=== PATIENT | male | born 1930 | race Caucasian/White ===

== ENCOUNTER 2022-02-09 13:05 | Inpatient (IN) | payer MEDICARE, OTHER ==
[2022-02-09 14:18] LABS: CHLORIDE,CL 101 mmol/L (98-107); SODIUM,NA 137 mmol/L (136-145)
[2022-02-09 14:20] LABS: ANION GAP 16.5 mmol/L (5-15); ESTIMATED GFR 36 mL/min (>=60)
[2022-02-09] MEDS ORDERED: Labetalol 20 MG/4 ML Syringe IVPUSH ONE ×2 (15:27→18:33)
[2022-02-09] MEDS ORDERED: Metoprolol Tartrate 25 MG Tab PO ONE (18:50)
[2022-02-09] MEDS ORDERED: Ondansetron 4 MG/2 ML SDV IV PRN (20:50)
[2022-02-09] MEDS ORDERED: Acetaminophen 650 MG Supp RECTAL PRN (20:50)
[2022-02-09] MEDS ORDERED: Acetaminophen 325 MG Tab PO PRN (20:50)
[2022-02-09] MEDS ORDERED: Labetalol 20 MG/4 ML Syringe IVPUSH PRN (20:55)
[2022-02-09] MEDS ORDERED: Glucagon,Human Recombinant 1 MG Vial IM PRN (21:06)
[2022-02-09] MEDS ORDERED: 50% Dextrose in Water 50 ML Syringe IVPUSH PRN (21:06)
[2022-02-09] MEDS ORDERED: LORazepam Conc Solution 2 MG/ML 30 ML Bottle PO PRN (21:09)
[2022-02-09] MEDS ORDERED: Morphine Oral Concentrate 20 MG/ML 30 ML Bottle SL PRN (21:13)
[2022-02-10] MEDS ORDERED: Insulin Regular, Human 100 Units/ML 3 ML Vial SUBCUT SCH ×2 (07:00→17:00)
[2022-02-10 07:42] LABS: CHLORIDE,CL 101 mmol/L (98-107); SODIUM,NA 135 mmol/L (136-145)
[2022-02-10 07:50] LABS: ANION GAP 13.4 mmol/L (5-15); ESTIMATED GFR 36 mL/min (>=60)
[2022-02-10] MEDS: Insulin Regular, Human 100 Units/ML 3 ML Vial SUBCUT SCH ×4 (09:05→18:02)
[2022-02-10] MEDS: Levothyroxine 100 MCG Tab PO SCH (09:05)
[2022-02-10] MEDS: Metoprolol Succinate 50 MG Tab.ER PO SCH (09:05)
[2022-02-10] MEDS ORDERED: 50% Dextrose in Water 50 ML Syringe IVPUSH PRN (09:07)
[2022-02-10] MEDS ORDERED: Glucagon,Human Recombinant 1 MG Vial IM PRN (09:07)
[2022-02-10] MEDS: amLODIPine 5 MG Tab PO SCH (09:15)
[2022-02-10] MEDS: Aspirin 81 MG Tab.EC PO SCH (10:32)
[2022-02-10] MEDS: Insulin Glarg,Human.Rec.Analog 100 Unit/ML SUBCUT SCH (10:33)
[2022-02-11] MEDS: Levothyroxine 100 MCG Tab PO SCH (05:59)
[2022-02-11 07:33] LABS: ANION GAP 10.1 mmol/L (5-15)
[2022-02-11] MEDS ORDERED: Insulin Regular, Human 100 Units/ML 3 ML Vial SUBCUT SCH (08:00)
[2022-02-11] MEDS: Insulin Glarg,Human.Rec.Analog 100 Unit/ML SUBCUT SCH (08:25)
[2022-02-11] MEDS: Insulin Regular, Human 100 Units/ML 3 ML Vial SUBCUT SCH ×3 (08:29→12:06)
[2022-02-11] MEDS: amLODIPine 5 MG Tab PO SCH (08:33)
[2022-02-11] MEDS: Aspirin 81 MG Tab.EC PO SCH (08:33)
[2022-02-11] MEDS: Metoprolol Succinate 50 MG Tab.ER PO SCH (08:34)
[2022-02-11] MEDS ORDERED: Sulfamethoxazole/Trimethoprim 400-80 MG Tab PO SCH (09:00)
== END 2022-02-11 17:45 | disposition hospice, home (50) | DRG 65 ==
LOC: VM.ED 13:05 → VM.MS 18:48
PROVIDERS: ADMIT Nurse Practitioner Family; ATTEND Nurse Practitioner Family
DX: I63.9 Cerebral infarction, unspecified (principal); N39.0 Urinary tract infection, site not specified; N40.0 Benign prostatic hyperplasia without lower urinary tract symptoms; E03.9 Hypothyroidism, unspecified; R63.4 Abnormal weight loss; Z66 Do not resuscitate; Z51.5 Encounter for palliative care; H91.90 Unspecified hearing loss, unspecified ear; I25.10 Atherosclerotic heart disease of native coronary artery without angina pectoris; E78.00 Pure hypercholesterolemia, unspecified; I73.9 Peripheral vascular disease, unspecified; I65.23 Occlusion and stenosis of bilateral carotid arteries; K57.90 Diverticulosis of intestine, part unspecified, without perforation or abscess without bleeding; N18.32 Chronic kidney disease, stage 3b; R32 Unspecified urinary incontinence; R56.9 Unspecified convulsions; I12.9 Hypertensive chronic kidney disease with stage 1 through stage 4 chronic kidney disease, or unspecified chronic kidney disease; E11.22 Type 2 diabetes mellitus with diabetic chronic kidney disease; F03.90 Unspecified dementia, unspecified severity, without behavioral disturbance, psychotic disturbance, mood disturbance, and anxiety; L57.0 Actinic keratosis; Z87.891 Personal history of nicotine dependence; M54.2 Cervicalgia; R41.3 Other amnesia; S00.93XA Contusion of unspecified part of head, initial encounter; W19.XXXA Unspecified fall, initial encounter; Z79.4 Long term (current) use of insulin; Z79.890 Hormone replacement therapy
CPT/HCPCS: 36415; 70450; 70551; 72125; 80048; 80053; 81001; 82550; 82947; 83615; 84484; 85025; 85027; 87086; 87088; 87186; 92610-GN; 96374; 97110-GP; 97116-GP; 97161-GP; 97165-GO; 99285-25; A9270-GY; J1815-GY; J3490